=== PATIENT | male | born 2000 ===

== ENCOUNTER → 2024-05-21 11:41 | Outpatient (CLI) | payer OTHER ==
[2024-05-21 12:11] LABS: HEMATOCRIT 42.9 % (39.0-48.0); MEAN CELL VOLUME 87.1 fL (80.0-100.00); MEAN CORPUSCULAR HEMOGLOBIN 30.4 pg (27.00-32.0); MEAN CORPUSCULAR HGB CONC 34.9 g/dl (32.0-36.0); PLATELET COUNT 187 K/uL (150-450); RED BLOOD COUNT 4.92 M/uL (4.00-6.00); RED CELL DISTRIBUTION WIDTH 13.9 % (11.5-14.5)
[2024-05-21 12:53] LABS: ALBUMIN 4.5 gm/dL (3.4-5.0); BILIRUBIN TOTAL 0.98 mg/dL (0.3-1.2); CALCIUM 9.5 mg/dL (8.5-10.1); CREATININE SERUM 1.09 mg/dL (0.70-1.30); GFR 84.59; GLOBULINA 3.1 G/DL (2.4-3.5); POTASSIUM 3.86 mEq/L (3.5-5.1); TOTAL PROTEIN 7.6 gm/dL (6.4-8.2); TSH 0.896 uIU/mL (0.358-3.74)
== END | disposition home or self-care (01) ==
LOC: LAB 11:41
DX: E03.9 Hypothyroidism, unspecified (principal); D64.9 Anemia, unspecified; I10 Essential (primary) hypertension